=== PATIENT | female | born 1995 | race Caucasian/White ===

== ENCOUNTER 2020-05-26 22:24 | Emergency (ER) | payer BC ==
[~2020-05-26] VITALS: Ht 162.6 cm; Wt 75.7 kg
[2020-05-26 22:49] VITALS: BP_SYST 112
[2020-05-26 23:40] LABS: MEAN CORPUSCULAR VOLUME 84 fL (79.0-98.0); MONOCYTES # (AUTO) 0.8 K/uL (0.0-1.0); RED CELL DISTRIBUTION WIDTH 16.1 % (9.0-15.0); WHITE BLOOD COUNT (AUTO) 7.1 K/uL (4.8-10.8)
[2020-05-26 23:44] LABS: BASOPHILS % (AUTO) 0.5 % (0.0-2.0); EOSINOPHILS % (AUTO) 0.1 % (0.0-4.0); HEMATOCRIT 44.9 % (36-48); LYMPHOCYTES # (AUTO) 3.3 K/uL (1.0-5.5); MEAN CORPUSCULAR HEMOGLOBIN 28 pg (27-31); MEAN CORPUSCULAR HGB CONC 33 % (32-36); NEUTROPHILS % (AUTO) 42.4 % (40.0-70.0); PLATELET COUNT (AUTO) 123 K/uL (130-430); RED BLOOD CELL COUNT(AUTO) 5.37 MIL/uL (4.2-6.2)
[2020-05-26 23:51] LABS: CALCIUM 9.3 mg/dL (8.4-11.0); CREATININE 0.95 mg/dL (0.55-1.30); POTASSIUM 3.7 mmol/L (3.5-5.1)
[2020-05-26 23:57] LABS: ALBUMIN 4.1 g/dL (3.4-4.8)
[2020-05-27] MEDS ORDERED: NACL 0.9% 1,000 ML IV ONE
[2020-05-27] MEDS ORDERED: ONDANSETRON HCL 4 MG/2 ML VIAL IVP ONE
[2020-05-27 01:37] LABS: BILIRUBIN,URINE 2+ (NEGATIVE); BLOOD, URINE TRACE (NEGATIVE); CLARITY/URINE CLEAR (CLEAR); COLOR,URINE YELLOW (YELLOW); GLUCOSE,URINE NEGATIVE (NEGATIVE); KETONES,URINE 3+ (NEGATIVE); LEUKOCYTE ESTERASE ,URINE NEGATIVE (NEGATIVE); NITRITE, URINE NEGATIVE (NEGATIVE); PH,URINE 5.5 (5.0-8.0); PROTEIN URINE 1+ (NEGATIVE)
[2020-05-27 02:09] LABS: BACTERIA,URINE MODERATE /HPF (None Seen); HYALINE CASTS, URINE 0-10 /LPF (None Seen)
[2020-05-27 03:42] VITALS: BP_SYST 116
== END 2020-05-27 03:42 | disposition home or self-care (01) ==
LOC: SED 22:24
DX: R10.13 Epigastric pain (principal); R11.2 Nausea with vomiting, unspecified
CPT/HCPCS: 36415; 74176; 76376; 80053; 81000; 81025; 82150; 83690; 85025; 87086; 96361; 96374; 99284; J2405; J7030; 84703